=== PATIENT | female | born 1945 | race Caucasian/White ===

== ENCOUNTER 2017-10-08 10:01 | Inpatient (IN) ==
--- NOTE | 2017-10-07 16:18 | MH ---
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 HISTORY OF PRESENT ILLNESS: It has been there for quite a few years, but now starting to get larger and become painful. She also has a mole in the right cheek, when removed about 2 x 2 cm. She has had this mass over there for quite a few years. PAST SURGICAL HISTORY: She had a hysterectomy. She had a cholecystectomy. She had removal of mole on her right cheek. She had a fracture of her right arm. She denies any problems with anesthesia. PAST MEDICAL HISTORY: Her medical history includes high cholesterol and noninsulin dependent diabetes. REVIEW OF SYSTEMS: Presently normal. No infectious disease, no known problem. MEDICATIONS: 1. Metformin. 2. Lipitor. 3. Xanax. ALLERGIES: SULFA, ASPIRIN. She got sick with Tylenol #3. FAMILY HISTORY: Mother has heart disease. Father with TB and emphysema. 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 She is . Does not smoking. Drinking Habits: Does not drink. Her sleeping habits are poor. REVIEW OF SYSTEMS: GENERAL: She is 5 feet, 3 inches, 200 pounds. She has had no significant weight loss or gain in the past 6 months. HEENT: Head normal. Eyes: She has a cataract in her right eye. She wears glasses. Nose: No bleeding or obstruction. Mouth: She has got no dental difficulties. She wears a partial. THROAT: She has had some soreness, she thinks from her mass in her parotid. LYMPH NODES: Lymph nodes are locally without any enlargement. RESPIRATORY: She has a little shortness of breath when she is gets too active. CARDIOVASCULAR: She has some hypertension. She does get a little shortness of breath on exertion. No history of edema or phlebitis. No rheumatic fever. GI: She had her gallbladder taken out 20 years ago. She has some peptic ulcer issues at times. GENITOURINARY: No urinary difficulties. MUSCULOSKELETAL: No pain with range of motion. ENDOCRINE: She takes metformin for her diabetes, she is not insulin dependent. HEMATOLOGY: No immune pathology. NEURO: Normal motor and sensory. GENERAL: She is pleasant and positive. OB HISTORY: She is para 2, 2. PHYSICAL EXAMINATION: VITAL SIGNS: 138/87, pulse 78 and regular. O2 sat 97% on room air. 2. GENERAL: She is a well-nourished, well-developed female. HEAD AND NECK: Normocephalic. Carotids +2. She has a mass in her right parotid gland that is visible on examination, it is about a 3 x 5 cm. EYES: PERRLA, EOMI. Visual acuity intact. She wears glasses. Nose: Visible, stable. Septum midline. Mouth and oral cavity shows a partial in intraorally. NECK: Her neck is thin supple, without adenopathy. CARDIOVASCULAR: Regular rate and rhythm. S1, S2. No murmurs, rubs. RESPIRATORY: Bilaterally clear to auscultation. ABDOMEN: Soft, nontender. Bowel sounds heard in all 4 quadrants. : Deferred. EXTREMITIES: She has good pulses. Equal strength. NEUROLOGIC: She is alert and oriented x3. ASSESSMENT AND PLAN. Admission to [facility] for superficial parotidectomy on the right side and also removal of the mole on the right cheek. NATHALIA Acuña/FRANCI , 03:40 PM , 04:17 PM
[2017-10-08] MEDS ORDERED: Chlorhexidine Gluconate 2% 1 Pack (2 Cloths) TOPICAL SCH (10:45)
[2017-10-08] MEDS ORDERED: Metoprolol Tartrate 25 MG Tablet PO SCH (10:45)
[2017-10-08] MEDS ORDERED: Sodium Chlor 0.9% Inj 500 ML IV.SIG SCH (11:00)
[2017-10-08] MEDS ORDERED: Famotidine PF Inj 20 MG/2 ML Vial ONE (11:07)
--- NOTE | 2017-10-08 11:24 | ECG ---
Date Performed: 10/08/2017 Time Performed: 10:38:11 PTAGE: 72 years EKG: Sinus rhythm NORMAL ECG NO PREVIOUS TRACING DOCTOR: Migel Marie Interpretating Date/Time 10/08/2017 11:23:41
[2017-10-08 11:51] LABS: Baso % (Auto) 0.6 % (0.0-2.0); Eos # (Auto) 0.1 th/mm3 (0.0-0.4); Hematocrit 43.6 % (35.0-46.0); Hemoglobin 14.6 gm/dL (11.6-15.3); Lymph # (Auto) 3.1 th/mm3 (1.0-4.8); Lymph % (Auto) 44.3 % (9.0-44.0); Mean Corpuscular HGB Conc 33.5 % (32.0-36.0); Mean Corpuscular Hemoglobin 30.3 pg (27.0-34.0); Mean Corpuscular Volume 90.3 fL (80.0-100.0); Mean Platelet Volume 8.3 fL (7.0-11.0); Mono # (Auto) 0.5 th/mm3 (0.0-0.9); Mono % (Auto) 7.7 % (0.0-8.0); Neut # (Auto) 3.2 th/mm3 (1.8-7.7); Neut % (Auto) 45.4 % (16.0-70.0); Platelet Count 242 th/mm3 (150-450); Red Blood Count 4.82 mil/mm3 (4.00-5.30); Red Cell Distribution Width 13.8 % (11.6-17.2)
[2017-10-08] MEDS ORDERED: Lidocaine 1%/Epinephrine 1:100,000 Inj 50 ML Vial ONE (11:57)
[2017-10-08] MEDS ORDERED: Phenylephrine/NS 1000 MCG/10ML Syringe IV.PUSH ONE (12:00)
[2017-10-08] MEDS ORDERED: Lidocaine PF 1% Inj 5 ML Syringe INFILTRATN ONE (12:00)
[2017-10-08] MEDS ORDERED: Succinylcholine Inj 100 MG/5 ML Syringe IV.PUSH ONE (12:00)
[2017-10-08 12:13] LABS: Carbon Dioxide 26.9 meq/L (21.0-32.0); Potassium 3.8 meq/L (3.5-5.1)
[2017-10-08 12:14] LABS: Calcium 9.2 mg/dL (8.5-10.1)
[2017-10-08] MEDS ORDERED: Famotidine PF Inj 20 MG/2 ML Vial IV.PUSH ONE (12:30)
[2017-10-08] MEDS ORDERED: Microfibrillar Collagen Hemostat 1 GM Packet TOPICAL ONE (13:37)
[2017-10-08] MEDS ORDERED: fentaNYL Citrate Inj 100 MCG/2 ML Ampul ONE (14:26)
[2017-10-08] MEDS ORDERED: *Meperidine Inj 25 MG/ML Vial PERIprocedural Use ONLY ONE (14:37)
[2017-10-08] MEDS ORDERED: Morphine Inj 4 MG/ML Vial IV.PUSH PRN (14:41)
--- NOTE | 2017-10-08 14:56 | MP ---
cc: Jacky Dow DDS DATE OF OPERATION: 10/08/2017 DATE OF : 1945 DATE OF SURGERY: 10/08/2017 PREOPERATIVE DIAGNOSIS: Mass, right parotid gland. POSTOPERATIVE DIAGNOSIS: Mass, right parotid gland. PROCEDURE PERFORMED: Right superficial parotidectomy. SURGEON: Jacky Dow MD, Maxillofacial liner installer: Jacob Caro. FLUIDS: Crystalloids 1600 mL. ESTIMATED BLOOD LOSS: 50 mL. SPECIMENS: One permanent sent. DRAINS: She got a #7 FELISHA coming out of the right neck. JUSTIFICATION: Ms. Connolly is a pleasant 72-year-old female I have been following for a while. She has a mass in the right parotid which she has had for a few years. It is now starting to grow. CT scan showed how much larger it had gotten in size, now over 5 x 6 cm in size in the right parotid tail. It had started to cause her pain upon opening, so decision was made to go ahead and remove. 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 PROCEDURE: On 10/08/2017 [facility] she was identified by name and chart number. She was then brought to OR #7, where she was intubated orally by Anesthesia. She was prepped and draped in sterile fashion. Local anesthesia given with 1% Xylocaine with 1:1000 epinephrine, total of 10 mL in the right neck and preauricular region. A preauricular incision was made, facelift incision type, coming underneath the ear, back posteriorly and in question marlon incision down the neck. Subcutaneous dissection done to expose the flap out and expose the parotid gland and the mass. Dissection done deep along the preauricular and posterior auricular region, taking down underneath the parotid mass and the superficial tail of the parotid, removing the mass. Multiple vessels were entered, going to the lesion and had to be cut and tied off with a 2-0 silk suture. Some of the SCM muscle was bound down and scarred down to it, dissecting and releasing it from the parotid mass. Some cystic spaces were noted and some of the contents of the tumor dumped out suggestive of a Warthin's tumor. Continued to dissect down, tying off the bleeders, dissecting around the tumor mass, which had been there, scarred down, fairly difficult in a couple areas to remove. The mass was removed in 2 separate sections and sent off for permanent. The space was irrigated with copious saline. The closure was done. Avitene was placed in some of the space areas. Upon closure, the patient bucked and re-bleeding in the area. Had to open back to locate a small bleeder and then irrigated out again and the closure continued with a 4-0 Vicryl deep and 6-0 Prolene in the skin, some zacarias in the hairline. A dressing was wrapped around the neck to try to keep some pressure on this especially during extubation. According to Anesthesia, she was all over the place with her blood pressure, trying to keep it at a low number so she does have any bleeding issues into the neck. The patient was extubated and taken to Recovery with vital signs stable. Her plan is to go home tonight. If she has any issues in the PACU, then we will keep her for 23 hours if necessary. NATHALIA Acuña/FRANCI , 02:29 PM , 02:54 PM
--- NOTE | 2017-10-08 15:40 | CT ---
EXAM DATE: 10/08/2017 3:34 PM EDT AGE/SEX: 72 years / Female INDICATIONS: Post carotid surgery, slurred speech and seizure activity CLINICAL DATA: This is the patient's initial encounter. Patient reports that signs and symptoms have been present for 1 day and indicates a pain score of 4/10. MEDICAL/SURGICAL HISTORY: . unable to obtain . unable to obtain RADIATION DOSE: 56.35 CTDI (mGy) COMPARISON: POI, CT BRAIN W AND W/O CONTRAST, 08/16/2017. . TECHNIQUE: CT of the head without contrast. Using automated exposure control and adjustment of the mA and/or kV according to patient size, radiation dose was kept as low as reasonably achievable to ob tain optimal diagnostic quality images. DICOM format image data is available electronically for revi ew and comparison. FINDINGS: Cerebrum: The ventricular system is stable in appearance with diffuse prominence of the lateral vent ricles. There is mild atrophic change with sulcal prominence. No evidence of midline shift, mass lesi on, hemorrhage or acute infarction. No extraaxial fluid collections are seen. Posterior Fossa: The cerebellum and brainstem are intact. The 4th ventricle is midline. The cerebe llopontine angle is unremarkable. Extracranial: The visualized portion of the orbits is intact. Skull: The calvaria is intact. No evidence of skull fracture. CONCLUSION: 1. Stable appearance with no acute hemorrhage or mass effect. The lateral ventricles remain prominen t. Report was called by [Dr. Rapp to Dr. Euceda at 1536 hours. ] Electronically signed by: Butch Rapp MD 10/08/2017 3:39 PM EDT
[2017-10-08 15:47] LABS: Baso % (Auto) 0.5 % (0.0-2.0); Eos # (Auto) 0.1 th/mm3 (0.0-0.4); Eos % (Auto) 1.5 % (0.0-4.0); Hematocrit 40.2 % (35.0-46.0); Hemoglobin 13.4 gm/dL (11.6-15.3); Lymph # (Auto) 2.6 th/mm3 (1.0-4.8); Lymph % (Auto) 36.3 % (9.0-44.0); Mean Corpuscular HGB Conc 33.5 % (32.0-36.0); Mean Corpuscular Hemoglobin 30.9 pg (27.0-34.0); Mean Corpuscular Volume 92.4 fL (80.0-100.0); Mean Platelet Volume 8.3 fL (7.0-11.0); Mono # (Auto) 0.5 th/mm3 (0.0-0.9); Mono % (Auto) 6.5 % (0.0-8.0); Neut % (Auto) 55.2 % (16.0-70.0); Platelet Count 211 th/mm3 (150-450); Red Blood Count 4.35 mil/mm3 (4.00-5.30); Red Cell Distribution Width 13.9 % (11.6-17.2); White Blood Count 7.3 th/mm3 (4.0-11.0)
[2017-10-08 16:01] LABS: Creatine Kinase 65 U/L (26-192)
[2017-10-08 16:11] LABS: Activated Partial Thrombo Time 21.4 sec (24.3-30.1); INR 1.1 Ratio; Prothrombin Time 10.8 sec (9.8-11.6)
--- NOTE | 2017-10-08 16:35 | P.CONNEU ---
History of Present Illness Service: Neurology Primary Care Provider: Miriam Suggs MD Family Provider: Miriam Suggs MD History of Present Illness: 72-year-old female admitted for right parotid tumor excision. Postop noted to be confused slurred speech right facial weakness same side as her surgery. She apparently was given opiate medication. Transfer to the intensive care unit. She has CT brain scan which did not show any acute lesion. She is feeling better her speech is improved she is more awake and alert. Denies any focal weakness or history of TIA or stroke. Review of Systems All other systems reviewed negative except as stated in HPI [facility] - History History Provided By: Patient - Medical History Medical History: Medical History (Last Updated 10/08/17 @ 10:59 by Babs Cortes RN) Asthma Anxiety Arthritis Degenerated intervertebral disc Diabetes GERD (gastroesophageal reflux disease) High cholesterol History of fracture of wrist Hx of hysterectomy Squamous cell carcinoma - Surgical History Surgical History: Surgical History (Last Reviewed 10/08/17 @ 10:58 by Babs Cortes RN) Hx of cholecystectomy Hx of removal of cyst - Tobacco History Second Hand Smoke Exposure: No Tobacco Use In Past 30 Days: No Smoking Status: Never smoker - Alcohol History How Often Do You Have a Drink Containing Alcohol: Never - Substance Use History Substance History: No History of Abuse Medications and Allergies Active Medications: Active Medications Chlorhexidine Gluconate (Chlorhexidine 2% Cloth) 3 pack TOPICAL STUDENT COUNSELLOR [facility] Stop: 10/11/17 10:36 Last Admin: 10/08/17 10:20 Dose: 3 pack Lactated Ringer's (Lr 1000 Ml Inj) 1,000 mls @ 30 mls/hr IV.SIG .Q24H [facility] Stop: 10/11/17 10:36 Last Admin: 10/08/17 11:32 Dose: 30 mls/hr Sodium Chloride (Ns Inj) 500 mls @ 30 mls/hr IV.SIG .Q10H [facility] Stop: 10/11/17 10:36 Metoprolol Tartrate (Lopressor) 25 mg PO STUDENT COUNSELLOR [facility] Stop: 10/11/17 10:36 Last Admin: 10/08/17 11:35 Dose: Not Given Miscellaneous Information (Misc Nursing Information) 1 each OTHER UNSCH PRN PRN Reason: SEE LABEL COMMENTS Stop: 10/09/17 14:37 Morphine Sulfate (Morphine Inj) 2 mg IV.PUSH Q3H PRN PRN Reason: PAIN SCALE 6-10 Oxycodone/Acetaminophen (Percocet 5/325 Mg) 1 tab PO Q4H PRN PRN Reason: PAIN SCALE 1-5 Povidone Iodine (Betadine 5% Antisepsis Kit) 1 applicatio EACH N[employer] STUDENT COUNSELLOR [place] Stop: 10/11/17 10:36 Last Admin: 10/08/17 11:10 Dose: 1 applicatio Allergies Allergy/AdvReac Type Severity Reaction Status Date / Time Sulfa (Sulfonamide Allergy Swelling Verified 10/08/17 10:55 Antibiotics) of Lip/Tongue/Throat acetaminophen AdvReac Gastrointestinal Verified 10/08/17 10:55 Upset aspirin AdvReac Gastrointestinal Verified 10/08/17 10:55 Upset Home Medications Medication Instructions Recorded Confirmed Type alprazolam [Xanax] 0.25 mg PO BID PRN 10/04/17 10/08/17 History atorvastatin 40 mg PO EVERY OTHER DAY 10/04/17 10/08/17 History hydrocodone-acetaminophen [Empire] 1 tab PO Q4-6H PRN 10/04/17 10/08/17 History metformin 500 mg PO DAILY 10/04/17 10/08/17 History omeprazole 20 mg PO DAILY 10/04/17 10/08/17 History fluticasone-vilanterol [Breo 1 inh INHALATION DAILY 10/08/17 10/08/17 History Ellipta] Exam Vital signs: Vital Signs 10/08/17 11:11 Temperature 98.8 F Pulse Rate 80 Respiratory Rate 20 Blood Pressure 142/69 H Pulse Oximetry 94 L Intake & Output 10/07/17 10/08/17 10/08/17 18:59 06:59 18:59 Weight 93.6 kg Other: Weight On Admission 93.6 kg Narrative: GENERAL: Well nourished patient, in no apparent distress. SKIN: Warm and dry. HEAD: Atraumatic. Normocephalic. EYES: Pupils equal and round. No scleral icterus. No injection or drainage. NECK: Trachea midline. Neck is supple. CARDIOVASCULAR: Normal rate and regular rhythm without murmurs, RESPIRATORY: Symmetric, unlabored respirations. GASTROINTESTINAL: Abdomen soft, non-tender, non-distended. NEUROLOGICAL: Awake alert oriented 3 fluent articulate no aphasia. Extraocular movements intact no, mild right lower facial weakness drain coming out the right lower mandible region where she had her surgery, speech clear oriented 3 pupils sluggishly reactive extraocular movements intact tongue midline, no pronator drift - Constitutional no acute distress - Routine HEENT Exam Head: Present: normocephalic, atraumatic Eye: Present: EOMI - Routine Neck Exam Present: supple Results - Labs CBC & Chem 7: 10/08/17 15:17 10/08/17 11:20 Labs: Laboratory Results - last 24 hr 10/08/17 10/08/17 10/08/17 11:20 11:20 14:44 WBC 7.0 RBC 4.82 Hgb 14.6 POC Hgb (Calc) Hct 43.6 POC Hct MCV 90.3 MCH 30.3 MCHC 33.5 RDW 13.8 Plt Count 242 MPV 8.3 Neut % (Auto) 45.4 Lymph % (Auto) 44.3 H [place] % (Auto) 7.7 Eos % (Auto) 2.0 Baso % (Auto) 0.6 Neut # (Auto) 3.2 Lymph # (Auto) 3.1 [place] # (Auto) 0.5 Eos # (Auto) 0.1 Baso # (Auto) 0.0 WBC Differential . Differential Comment Auto diff final PT INR APTT Fibrinogen POC Sodium Sodium 142 POC Potassium Potassium 3.8 POC Chloride Chloride 106 Carbon Dioxide 26.9 Anion Gap 9 POC BUN BUN 18 Creatinine 1.03 H POC Creatinine Estimated GFR 53 L POC Glucose 100 Random Glucose 96 Calcium 9.2 Total Creatine Kinase Troponin I Blood Type Blood Type Recheck Antibody Screen 10/08/17 10/08/17 10/08/17 15:17 15:17 15:17 WBC 7.3 RBC 4.35 Hgb 13.4 POC Hgb (Calc) Hct 40.2 POC Hct MCV 92.4 MCH 30.9 MCHC 33.5 RDW 13.9 Plt Count 211 MPV 8.3 Neut % (Auto) 55.2 Lymph % (Auto) 36.3 [place] % (Auto) 6.5 Eos % (Auto) 1.5 Baso % (Auto) 0.5 Neut # (Auto) 4.0 Lymph # (Auto) 2.6 [place] # (Auto) 0.5 Eos # (Auto) 0.1 Baso # (Auto) 0.0 WBC Differential . Differential Comment Auto diff final PT 10.8 INR 1.1 APTT 21.4 L Fibrinogen 189 L POC Sodium Sodium POC Potassium Potassium POC Chloride Chloride Carbon Dioxide Anion Gap POC BUN BUN Creatinine POC Creatinine Estimated GFR POC Glucose Random Glucose Calcium Total Creatine Kinase 65 Troponin I Less than 0.02 L Blood Type Blood Type Recheck Antibody Screen 10/08/17 10/08/17 15:17 15:17 WBC RBC Hgb POC Hgb (Calc) 13.3 Hct POC Hct 39.0 MCV MCH MCHC RDW Plt Count MPV Neut % (Auto) Lymph % (Auto) [place] % (Auto) Eos % (Auto) Baso % (Auto) Neut # (Auto) Lymph # (Auto) [place] # (Auto) Eos # (Auto) Baso # (Auto) WBC Differential Differential Comment PT INR APTT Fibrinogen POC Sodium 140 Sodium POC Potassium 3.8 Potassium POC Chloride 101 L Chloride Carbon Dioxide Anion Gap POC BUN 18 BUN Creatinine POC Creatinine 1.0 Estimated GFR POC Glucose 137 H Random Glucose Calcium Total Creatine Kinase Troponin I Blood Type A Positive Blood Type Recheck Required Antibody Screen Negative - Imaging Impressions Head CT 10/08/17 15:16 CONCLUSION: 1. Stable appearance with no acute hemorrhage or mass effect. The lateral ventricles remain prominent. Report was called by [Dr. Rapp to Dr. Euceda at 1536 hours. 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 Code(s): G97.82 - Other postprocedural complications and disorders of nervous system; G51.9 - Disorder of facial nerve, unspecified Status: Acute Current Visit: Yes (3) Hypertension Code(s): I10 - Essential (primary) hypertension Status: Acute Current Visit : Yes - Review/Management Plan: Probable medication reaction causing her confusion lethargy; right facial weakness likely related to facial neuropathy associated with her recent surgery which hopefully should improve with time no other focal weakness Unlikely to be a stroke based on current clinical scenario thus not a TPA candidate in addition to minimal symptoms which have improved Recommendations Follow exam Blood pressure control
[2017-10-08] MEDS ORDERED: ALPRAZolam 0.25 MG Tablet PO PRN (17:22)
[2017-10-08] MEDS ORDERED: Dextrose 50% in Water 50 ML Vial IV.PUSH PRN (17:25)
--- NOTE | 2017-10-08 17:54 | P.CONIM ---
History of Present Illness Service: [facility] Consult date: 10/08/17 Requesting Physician: Jacky Almanzar Reason for Consult: MEDICAL MANAGEMENT Primary Care Provider: Miriam Suggs MD Family Provider: Miriam Suggs MD History of Present Illness: Patient is a 72-year-old female. Who underwent right parotidectomy by Dr. ALMANZAR TODAY. After surgery was noted to have some right-sided facial droop. There was some concern about a TIA versus stroke. Was seen by neurology who ruled this out. It is suspect that may be a facial nerve was involved during the surgery. We have been asked to consult regarding medical management. Has a history of a hysterectomy, cholecystectomy, removal of her mole from her right cheek, repair fracture of her right arm, and tonsillectomy tonsillectomy. Also has a history of high cholesterol and diabetes mellitus and some anxiety Review of Systems All other systems reviewed negative except as stated in HPI [facility] - History History Provided By: Patient - Medical History Medical History: Medical History (Last Updated 10/08/17 @ 10:59 by Babs Cortes RN) Asthma Anxiety Arthritis Degenerated intervertebral disc Diabetes GERD (gastroesophageal reflux disease) High cholesterol History of fracture of wrist Hx of hysterectomy Squamous cell carcinoma - Surgical History Surgical History: Surgical History (Last Reviewed 10/08/17 @ 10:58 by Babs Cortes RN) Hx of cholecystectomy Hx of removal of cyst - Family History Family History: Family History (Last Updated 10/08/17 @ 17:51 by Jose E Mills DO) Mother Heart disease Grandparent Tuberculosis Father Tuberculosis Emphysema of lung - Tobacco History Second Hand Smoke Exposure: No Tobacco Use In Past 30 Days: No Smoking Status: Never smoker - Alcohol History How Often Do You Have a Drink Containing Alcohol: Never - Substance Use History Substance History: No History of Abuse Medications and Allergies Active Medications: Active Medications Hydrocodone Bitart/Acetaminophen ([place] 7.5/325) 1 tab PO Q4-6H PRN PRN Reason: Pain Al Hydrox/Mg Hydrox/Simethicone (Mag-Al Plus Susp Liq) 30 ml PO Q6H PRN PRN Reason: HEARTBURN Alprazolam (Xanax) 0.25 mg PO BID PRN PRN Reason: Anxiety Atorvastatin Calcium (Lipitor) 40 mg PO EVERY OTHER DAY [facility] Chlorhexidine Gluconate (Chlorhexidine 2% Cloth) 3 pack TOPICAL [employer] [facility] Stop: 10/11/17 10:36 Last Admin: 10/08/17 10:20 Dose: 3 pack Clonidine HCl (Catapres) 0.1 mg PO Q6H PRN PRN Reason: HYPERTENSION Dextrose (D50w Vial) 50 ml IV.PUSH UNSCH PRN PRN Reason: PER HYPOGLYCEMIA PROTOCOL Famotidine (Pepcid) 20 mg PO BID [facility] Fluticasone/Vilanterol (Breo Ellipta 100/25 Mcg Inh) puff INH DAILY [facility] Glucagon (Glucagon Inj) 1 mg OTHER PRN PRN PRN Reason: for Hypoglycemia Protocol Lactated Ringer's (Lr 1000 Ml Inj) 1,000 mls @ 30 mls/hr IV.SIG .Q24H [facility] Stop: 10/11/17 10:36 Last Admin: 10/08/17 11:32 Dose: 30 mls/hr Sodium Chloride (Ns Inj) 500 mls @ 30 mls/hr IV.SIG .Q10H [facility] Stop: 10/11/17 10:36 Insulin Aspart (Novolog Insulin Correctional Sugar Inj) 0 unit SQ ACHS AND 3AM [facility]; Protocol Metformin HCl (Glucophage) 500 mg PO DAILY [facility] Metoprolol Tartrate (Lopressor) 25 mg PO [employer] [facility] Stop: 10/11/17 10:36 Last Admin: 10/08/17 11:35 Dose: Not Given Miscellaneous Information ([facility] Nursing Information) 1 each OTHER UNSCH PRN PRN Reason: SEE LABEL COMMENTS Stop: 10/09/17 14:37 Morphine Sulfate (Morphine Inj) 2 mg IV.PUSH Q3H PRN PRN Reason: PAIN SCALE 6-10 Last Admin: 10/08/17 15:45 Dose: 2 mg Non-Formulary Medication (Omeprazole [Omeprazole]) 20 mg PO DAILY [facility] Oxycodone/Acetaminophen (Percocet 5/325 Mg) 1 tab PO Q4H PRN PRN Reason: PAIN SCALE 1-5 Povidone Iodine (Betadine 5% Antisepsis Kit) 1 applicatio EACH NARE [employer] [facility] Stop: 10/11/17 10:36 Last Admin: 10/08/17 11:10 Dose: 1 applicatio Allergies Allergy/AdvReac Type Severity Reaction Status Date / Time Sulfa (Sulfonamide Allergy Swelling Verified 10/08/17 10:55 Antibiotics) of Lip/Tongue/Throat acetaminophen AdvReac Gastrointestinal Verified 10/08/17 10:55 Upset aspirin AdvReac Gastrointestinal Verified 10/08/17 10:55 Upset Home Medications Medication Instructions Recorded Confirmed Type alprazolam [Xanax] 0.25 mg PO BID PRN 10/04/17 10/08/17 History atorvastatin 40 mg PO EVERY OTHER DAY 10/04/17 10/08/17 History hydrocodone-acetaminophen [[place]] 1 tab PO Q4-6H PRN 10/04/17 10/08/17 History metformin 500 mg PO DAILY 10/04/17 10/08/17 History omeprazole 20 mg PO DAILY 10/04/17 10/08/17 History fluticasone-vilanterol [Breo 1 inh INHALATION DAILY 10/08/17 10/08/17 History Ellipta] Exam Vital signs: Vital Signs 10/08/17 11:11 10/08/17 16:00 Temperature 98.8 F 97.8 F Pulse Rate 80 86 Respiratory Rate 20 16 Blood Pressure 142/69 H 137/63 Pulse Oximetry 94 L 99 Intake & Output 10/07/17 10/08/17 10/08/17 18:59 06:59 18:59 Weight 93.6 kg Other: Weight On Admission 93.6 kg Narrative: GENERAL: Awake alert and oriented talkative and cooperative appears stated age SKIN: Warm and dry. HEAD: Atraumatic. Normocephalic. EYES: Pupils equal and round. No scleral icterus. No injection or drainage. Right neck face is dressed. Has some right-sided facial droop suspected from facial nerve injury from surgery ENT: No nasal bleeding or discharge. Mucous membranes pink and moist. NECK: Trachea midline. No JVD. Supple CARDIOVASCULAR: Regular rate and rhythm. S1-S2 no S3 or S4 RESPIRATORY: No accessory muscle use. Clear to auscultation. Breath sounds equal bilaterally. GASTROINTESTINAL: Abdomen soft, non-tender, nondistended. Hepatic and splenic margins not palpable. MUSCULOSKELETAL: Extremities without clubbing, cyanosis, or edema. No obvious deformities. NEUROLOGICAL: Awake and alert. No obvious cranial nerve deficits. Motor grossly within normal limits. Five out of 5 muscle strength in the arms and legs. Normal speech. Right facial droop probably secondary to surgery PSYCHIATRIC: Appropriate mood and affect; insight and judgment normal. Results - Labs CBC & Chem 7: 10/08/17 15:17 10/08/17 11:20 Labs: Laboratory Results - last 24 hr 10/08/17 10/08/17 10/08/17 11:20 11:20 14:44 WBC 7.0 RBC 4.82 Hgb 14.6 POC Hgb (Calc) Hct 43.6 POC Hct MCV 90.3 MCH 30.3 MCHC 33.5 RDW 13.8 Plt Count 242 MPV 8.3 Neut % (Auto) 45.4 Lymph % (Auto) 44.3 H Store[place] % (Auto) 7.7 Eos % (Auto) 2.0 Baso % (Auto) 0.6 Neut # (Auto) 3.2 Lymph # (Auto) 3.1 [place] # (Auto) 0.5 Eos # (Auto) 0.1 Baso # (Auto) 0.0 WBC Differential . Differential Comment Auto diff final PT INR APTT Fibrinogen POC Sodium Sodium 142 POC Potassium Potassium 3.8 POC Chloride Chloride 106 Carbon Dioxide 26.9 Anion Gap 9 POC BUN BUN 18 Creatinine 1.03 H POC Creatinine Estimated GFR 53 L POC Glucose 100 Random Glucose 96 Calcium 9.2 Total Creatine Kinase Troponin I Blood Type Blood Type Recheck Antibody Screen 10/08/17 10/08/17 10/08/17 15:17 15:17 15:17 WBC 7.3 RBC 4.35 Hgb 13.4 POC Hgb (Calc) Hct 40.2 POC Hct MCV 92.4 MCH 30.9 MCHC 33.5 RDW 13.9 Plt Count 211 MPV 8.3 Neut % (Auto) 55.2 Lymph % (Auto) 36.3 [place] % (Auto) 6.5 Eos % (Auto) 1.5 Baso % (Auto) 0.5 Neut # (Auto) 4.0 Lymph # (Auto) 2.6 [place] # (Auto) 0.5 Eos # (Auto) 0.1 Baso # (Auto) 0.0 WBC Differential . Differential Comment Auto diff final PT 10.8 INR 1.1 APTT 21.4 L Fibrinogen 189 L POC Sodium Sodium POC Potassium Potassium POC Chloride Chloride Carbon Dioxide Anion Gap POC BUN BUN Creatinine POC Creatinine Estimated GFR POC Glucose Random Glucose Calcium Total Creatine Kinase 65 Troponin I Less than 0.02 L Blood Type Blood Type Recheck Antibody Screen 10/08/17 10/08/17 15:17 15:17 WBC RBC Hgb POC Hgb (Calc) 13.3 Hct POC Hct 39.0 MCV MCH MCHC RDW Plt Count MPV Neut % (Auto) Lymph % (Auto) [place]y % (Auto) Eos % (Auto) Baso % (Auto) Neut # (Auto) Lymph # (Auto) [place] # (Auto) Eos # (Auto) Baso # (Auto) WBC Differential Differential Comment PT INR APTT Fibrinogen POC Sodium 140 Sodium POC Potassium 3.8 Potassium POC Chloride 101 L Chloride Carbon Dioxide Anion Gap POC BUN 18 BUN Creatinine POC Creatinine 1.0 Estimated GFR POC Glucose 137 H Random Glucose Calcium Total Creatine Kinase Troponin I Blood Type A Positive Blood Type Recheck Required Antibody Screen Negative - Imaging Impressions Head CT 10/08/17 15:16 CONCLUSION: 1. Stable appearance with no acute hemorrhage or mass effect. The lateral ventricles remain prominent. Report was called by [Dr. Rapp to Dr. Euceda at 1536 hours. 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 labs Will be followed throughout the admission and hopefully discharged within the next 24-48 hours depending on clearance by surgery Code Status: Full code Discussed Condition With: RN and patient and family Discharge Planning: Pending surgical clearance
[2017-10-08] MEDS: Insulin NovoLOG Aspart Correctional Sugar Inj SQ SCH ×2 (18:02→23:21)
--- NOTE | 2017-10-08 18:04 | ECG ---
Date Performed: 10/08/2017 Time Performed: 15:17:57 PTAGE: 72 years EKG: Sinus rhythm NORMAL ECG PREVIOUS TRACING : 10/08/2017 10.38 Since the previous tracing, no significant change noted DOCTOR: April Calle Interpretating Date/Time 10/08/2017 18:02:40
[2017-10-08] MEDS: Aluminum/Magnesium/Simethacone Susp 30 ML UDC PO PRN (18:05)
[2017-10-08] MEDS: Pantoprazole Sodium 20 MG DR Tablet PO SCH (18:43)
[2017-10-08] MEDS: Famotidine 20 MG Tablet PO SCH (23:20)
[2017-10-09 01:45] VITALS: PULSE 66
[2017-10-09] MEDS: Insulin NovoLOG Aspart Correctional Sugar Inj SQ SCH ×2 (05:41→08:41)
[2017-10-09] MEDS: Aluminum/Magnesium/Simethacone Susp 30 ML UDC PO PRN (05:56)
--- NOTE | 2017-10-09 06:43 | P.PNGS ---
Subjective Interval history: 72 y/o F POD 0 s/p right superficial parotidectomy. No further shaking, but continued decreased mobility of the right side of face c/w surgical procedure. Head CT negative for intracranial hemorrhage or infarct. Patient reports some mild discomfort overnight, managed with pain medications. Reports some continued tearing on the right side and decreased ability to perioral muscles and neck. Denies any nausea, fevers, chills. Physical Exam Vital signs: Vital Signs 10/08/17 11:11 10/08/17 14:12 10/08/17 14:15 Temperature 98.8 F 98.1 F Pulse Rate 80 101 H 99 H Respiratory Rate 20 18 19 Blood Pressure 142/69 H 132/69 126/60 Pulse Oximetry 94 L 98 97 10/08/17 14:30 10/08/17 14:45 10/08/17 15:00 Temperature Pulse Rate 94 H 91 H 88 Respiratory Rate 18 14 15 Blood Pressure 113/65 109/56 L 121/58 L Pulse Oximetry 98 96 96 10/08/17 15:15 10/08/17 15:36 10/08/17 15:45 Temperature Pulse Rate 92 H 91 H 84 Respiratory Rate 23 18 15 Blood Pressure 128/60 105/54 L 140/59 L Pulse Oximetry 95 95 98 10/08/17 16:00 10/08/17 18:40 10/08/17 19:00 Temperature 97.8 F Pulse Rate 86 80 Respiratory Rate 16 16 16 Blood Pressure 137/63 122/58 L Pulse Oximetry 99 94 L 10/08/17 19:47 10/08/17 20:00 10/08/17 21:00 Temperature 98.3 F Pulse Rate 80 75 Respiratory Rate 18 24 Blood Pressure 117/57 L 109/94 H Pulse Oximetry 95 94 L 10/08/17 22:00 10/08/17 23:00 10/09/17 00:00 Temperature 97.8 F Pulse Rate 71 66 77 Respiratory Rate 17 16 23 Blood Pressure 133/60 126/60 109/59 L Pulse Oximetry 10/09/17 01:00 Temperature Pulse Rate 66 Respiratory Rate Blood Pressure 105/52 L Pulse Oximetry Intake & Output 10/08/17 10/08/17 10/09/17 06:59 18:59 06:59 Intake Total 1915 / 191 Output Total 815 / 815 Balance 1100 / 1100 Weight 93.6 kg Intake: Oral 240 / 240 Anesthesia Amount 1600 / 1600 Other 75 / 75 Output: Urine 0 / 0 Estimated Blood Loss 50 / 50 Urine Amount (Catheter) 725 / 725 Indwelling Urethral Catheter 725 / 725 Wound Drainage 40 / 40 Right Cheek 40 / 40 Other: # Bowel Movements 0 Weight On Admission 93.6 kg - Constitutional no acute distress - Routine HEENT Exam Head: Present: normocephalic Comments: Mild facial edema on right side. FELISHA drain in place with minimal sanguinous drainage. Prateek in place as well as prolene sutures in periauricular region, well approximated. Scant hemorrhagic crusting around incision sites. Mild tenderness to palpation. HB III of facial nerve on right. Intraorally, mucous membranes are well hydrated. - Routine Neck Exam Comments: Decreased mobility with lateral movements. - Routine Respiratory Exam Comments: Normal WOB on room air - Routine Cardiovascular Exam Comments: Regular rate - Routine Abdominal Exam Present: soft - Urinary Catheter Management Indwelling Urethral Catheter Cath placed during this visit: yes Reason for continuing: Acute urinary retention Insertion date: 10/08/17 Insertion time: 16:00 Assessment and Plan - Assessment (1) Parotid tumor Code(s): D49.0 - Neoplasm of unspecified behavior of digestive system Status: Acute - Plan Patient doing well post-operatively. OK for discharge from OMS standpoint. Recommend removal of [place] catheter prior to discharge. Patient to follow-up in office tomorrow for drain removal. Patient may be provided with paper tape for eye to prevent drying at night. Also recommended to patient that she may use artificial tears as needed.
[2017-10-09 06:57] VITALS: BP 121/59; RESP 14; TEMP 98.4
[2017-10-09 07:04] LABS: Hematocrit 43.7 % (35.0-46.0); Hemoglobin 14.4 gm/dL (11.6-15.3); Mean Corpuscular HGB Conc 32.9 % (32.0-36.0); Mean Corpuscular Hemoglobin 29.9 pg (27.0-34.0); Mean Platelet Volume 8.7 fL (7.0-11.0); Platelet Count 237 th/mm3 (150-450); Red Cell Distribution Width 14.1 % (11.6-17.2); White Blood Count 13.8 th/mm3 (4.0-11.0)
[2017-10-09 07:25] LABS: Albumin 3.7 g/dL (3.4-5.0); Anion Gap 10 meq/L (5-15); Aspartate Aminotransferase 56 U/L (15-37); Blood Urea Nitrogen 15 mg/dL (7-18); Calcium 8.9 mg/dL (8.5-10.1); Carbon Dioxide 26.8 meq/L (21.0-32.0); Chloride 103 meq/L (98-107); Glomerular Filtration Rate 64 mL/min (>89); Glucose,Random 114 mg/dL (74-106); Magnesium 2.6 mg/dL (1.5-2.5); Sodium 140 meq/L (136-145)
[2017-10-09 07:26] LABS: Alanine Aminotransferase 76 U/L (10-53); Phosphorus 3.5 mg/dL (2.5-4.9)
[2017-10-09 07:34] LABS: Alkaline Phosphatase 66 U/L (45-117); Free T4 (Free Thyroxine) 0.95 ng/dL (0.76-1.46); Total Protein 7.5 g/dL (6.4-8.2)
--- NOTE | 2017-10-09 08:14 | P.PNNEU ---
Subjective Subjective Comments: No acute events reported No headache No chest pain No dyspnea Active Medications: Active Medications Hydrocodone Bitart/Acetaminophen ([place] 7.5/325) 1 tab PO Q4H PRN PRN Reason: PAIN SCALE 1 TO 10 Last Admin: 10/09/17 04:29 Dose: 1 tab Al Hydrox/Mg Hydrox/Simethicone (Mag-Al Plus Susp Liq) 30 ml PO Q6H PRN PRN Reason: HEARTBURN Last Admin: 10/09/17 05:56 Dose: 30 ml Alprazolam (Xanax) 0.25 mg PO BID PRN PRN Reason: Anxiety Last Admin: 10/08/17 22:00 Dose: 0.25 mg Atorvastatin Calcium (Lipitor) 40 mg PO EVERY OTHER DAY [facility] Chlorhexidine Gluconate (Chlorhexidine 2% Cloth) 3 pack 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 [facility] Stop: 10/11/17 10:36 Last Admin: 10/08/17 10:20 Dose: 3 pack Clonidine HCl (Catapres) 0.1 mg PO Q6H PRN PRN Reason: HYPERTENSION Dextrose (D50w Vial) 50 ml IV.PUSH UNSCH PRN PRN Reason: PER HYPOGLYCEMIA PROTOCOL Famotidine (Pepcid) 20 mg PO BID [facility] Last Admin: 10/08/17 23:20 Dose: Not Given Fluticasone/Vilanterol (Breo Ellipta 100/25 Mcg Inh) 1 puff INH DAILY [facility] Last Admin: 10/09/17 03:44 Dose: Not Given Glucagon (Glucagon Inj) 1 mg OTHER PRN PRN PRN Reason: for Hypoglycemia Protocol Lactated Ringer's (Lr 1000 Ml Inj) 1,000 mls @ 30 mls/hr IV.SIG .Q24H [facility] Stop: 10/11/17 10:36 Last Admin: 10/08/17 11:32 Dose: 30 mls/hr Sodium Chloride (Ns Inj) 500 mls @ 30 mls/hr IV.SIG .Q10H [facility] Stop: 10/11/17 10:36 Insulin Aspart (Novolog Insulin Correctional Sugar Inj) 0 unit SQ ACHS AND 3AM [facility]; Protocol Last Admin: 10/09/17 05:41 Dose: Not Given Metformin HCl (Glucophage) 500 mg PO DAILY [facility] Metoprolol Tartrate (Lopressor) 25 mg PO 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 [facility] Stop: 10/11/17 10:36 Last Admin: 10/08/17 11:35 Dose: Not Given Miscellaneous Information ([facility] Nursing Information) 1 each OTHER UNSCH PRN PRN Reason: SEE LABEL COMMENTS Stop: 10/09/17 14:37 Morphine Sulfate (Morphine Inj) 2 mg IV.PUSH Q3H PRN PRN Reason: PAIN SCALE 6-10 Last Admin: 10/08/17 15:45 Dose: 2 mg Oxycodone/Acetaminophen (Percocet 5/325 Mg) 1 tab PO Q4H PRN PRN Reason: PAIN SCALE 1-5 Pantoprazole Sodium (Protonix) 20 mg PO DAILY [facility] Last Admin: 10/08/17 18:43 Dose: 20 mg Povidone Iodine (Betadine 5% Antisepsis Kit) 1 applicatio EACH NARE 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 [facility] Stop: 10/11/17 10:36 Last Admin: 10/08/17 11:10 Dose: 1 applicatio Allergies/Adverse Reactions: Allergies Allergy/AdvReac Type Severity Reaction Status Date / Time Sulfa (Sulfonamide Allergy Swelling Verified 10/08/17 10:55 Antibiotics) of Lip/Tongue/Throat acetaminophen AdvReac Gastrointestinal Verified 10/08/17 10:55 Upset aspirin AdvReac Gastrointestinal Verified 10/08/17 10:55 Upset Review of Systems All other systems reviewed negative except as stated in HPI Physical Exam Vital signs: Vital Signs 10/08/17 11:11 10/08/17 14:12 10/08/17 14:15 Temperature 98.8 F 98.1 F Pulse Rate 80 101 H 99 H Respiratory Rate 20 18 19 Blood Pressure 142/69 H 132/69 126/60 Pulse Oximetry 94 L 98 97 10/08/17 14:30 10/08/17 14:45 10/08/17 15:00 Temperature Pulse Rate 94 H 91 H 88 Respiratory Rate 18 14 15 Blood Pressure 113/65 109/56 L 121/58 L Pulse Oximetry 98 96 96 10/08/17 15:15 10/08/17 15:36 10/08/17 15:45 Temperature Pulse Rate 92 H 91 H 84 Respiratory Rate 23 18 15 Blood Pressure 128/60 105/54 L 140/59 L Pulse Oximetry 95 95 98 10/08/17 16:00 10/08/17 18:40 10/08/17 19:00 Temperature 97.8 F Pulse Rate 86 80 Respiratory Rate 16 16 16 Blood Pressure 137/63 122/58 L Pulse Oximetry 99 94 L 10/08/17 19:47 10/08/17 20:00 10/08/17 21:00 Temperature 98.3 F Pulse Rate 80 75 Respiratory Rate 18 24 Blood Pressure 117/57 L 109/94 H Pulse Oximetry 95 94 L 10/08/17 22:00 10/08/17 23:00 10/09/17 00:00 Temperature 97.8 F Pulse Rate 71 66 77 Respiratory Rate 17 16 23 Blood Pressure 133/60 126/60 109/59 L Pulse Oximetry 10/09/17 01:00 10/09/17 02:00 10/09/17 03:00 Temperature Pulse Rate 66 64 64 Respiratory Rate 15 13 Blood Pressure 105/52 L 94/51 L 112/54 L Pulse Oximetry 96 95 10/09/17 04:00 10/09/17 05:00 10/09/17 06:00 Temperature 98.4 F Pulse Rate 66 64 66 Respiratory Rate 14 16 14 Blood Pressure 116/55 L 126/68 121/59 L Pulse Oximetry 96 96 95 Intake & Output 10/08/17 10/09/17 10/09/17 18:59 06:59 18:59 Intake Total 1915 / 1915 Output Total 815 / 815 1080 / 1080 Balance 1100 / 1100 -1080 / -1080 Weight 93.6 kg 93.61 kg Intake: Oral 240 / 240 Anesthesia Amount 1600 / 1600 Other 75 / 75 Output: Urine 0 / 0 Estimated Blood Loss 50 / 50 Urine Amount (Catheter) 725 / 725 1050 / 1050 Indwelling Urethral Catheter 725 / 725 1050 / 1050 Wound Drainage 40 / 40 30 / 30 Right Cheek 40 / 40 30 / 30 Other: # Bowel Movements 0 Weight On Admission 93.6 kg Narrative: GENERAL: Well nourished patient, in no apparent distress. SKIN: Warm and dry. HEAD: Atraumatic. Normocephalic. EYES: Pupils equal and round. NECK: Trachea midline. Neck is supple. CARDIOVASCULAR: Normal rate and regular rhythm without murmurs, RESPIRATORY: Symmetric, unlabored respirations. GASTROINTESTINAL: Abdomen soft, non-tender, non-distended. NEUROLOGICAL: Awake alert oriented 3 fluent articulate no aphasia. Extraocular movements intact no, mild right lower facial weakness drain coming out the right lower mandible region where she had her surgery, speech clear oriented 3 pupils sluggishly reactive extraocular movements intact tongue midline, no pronator drift - Constitutional no acute distress - Routine HEENT Exam Head: Present: normocephalic Eye: Present: EOMI - Urinary Catheter Management Indwelling Urethral Catheter Cath placed during this visit: yes Reason for continuing: Acute urinary retention Insertion date: 10/08/17 Insertion time: 16:00 Objective Laboratory Results - last 24 hr 10/08/17 10/08/17 10/08/17 11:20 11:20 14:44 WBC 7.0 RBC 4.82 Hgb 14.6 POC Hgb (Calc) Hct 43.6 POC Hct MCV 90.3 MCH 30.3 MCHC 33.5 RDW 13.8 Plt Count 242 MPV 8.3 Prelim Diff (Auto) Neut % (Auto) 45.4 Lymph % (Auto) 44.3 H [place] % (Auto) 7.7 Eos % (Auto) 2.0 Baso % (Auto) 0.6 Neut # (Auto) 3.2 Lymph # (Auto) 3.1 [place] # (Auto) 0.5 Eos # (Auto) 0.1 Baso # (Auto) 0.0 WBC Differential . Differential Comment Auto diff final PT INR APTT Fibrinogen POC Sodium Sodium 142 POC Potassium Potassium 3.8 POC Chloride Chloride 106 Carbon Dioxide 26.9 Anion Gap 9 POC BUN BUN 18 Creatinine 1.03 H POC Creatinine Estimated GFR 53 L POC Glucose 100 Random Glucose 96 Calcium 9.2 Phosphorus Magnesium Total Bilirubin AST ALT Alkaline Phosphatase Total Creatine Kinase Troponin I Total Protein Albumin TSH Free T4 Blood Type Blood Type Recheck Antibody Screen 10/08/17 10/08/17 10/08/17 15:17 15:17 15:17 WBC 7.3 RBC 4.35 Hgb 13.4 POC Hgb (Calc) Hct 40.2 POC Hct MCV 92.4 MCH 30.9 MCHC 33.5 RDW 13.9 Plt Count 211 MPV 8.3 Prelim Diff (Auto) Neut % (Auto) 55.2 Lymph % (Auto) 36.3 [place] % (Auto) 6.5 Eos % (Auto) 1.5 Baso % (Auto) 0.5 Neut # (Auto) 4.0 Lymph # (Auto) 2.6 [place] # (Auto) 0.5 Eos # (Auto) 0.1 Baso # (Auto) 0.0 WBC Differential . Differential Comment Auto diff final PT 10.8 INR 1.1 APTT 21.4 L Fibrinogen 189 L POC Sodium Sodium POC Potassium Potassium POC Chloride Chloride Carbon Dioxide Anion Gap POC BUN BUN Creatinine POC Creatinine Estimated GFR POC Glucose Random Glucose Calcium Phosphorus Magnesium Total Bilirubin AST ALT Alkaline Phosphatase Total Creatine Kinase 65 Troponin I Less than 0.02 L Total Protein Albumin TSH Free T4 Blood Type Blood Type Recheck Antibody Screen 10/08/17 10/08/17 10/08/17 15:17 15:17 17:56 WBC RBC Hgb POC Hgb (Calc) 13.3 Hct POC Hct 39.0 MCV MCH MCHC RDW Plt Count MPV Prelim Diff (Auto) Neut % (Auto) Lymph % (Auto) [place] % (Auto) Eos % (Auto) Baso % (Auto) Neut # (Auto) Lymph # (Auto) [place] # (Auto) Eos # (Auto) Baso # (Auto) WBC Differential Differential Comment PT INR APTT Fibrinogen POC Sodium 140 Sodium POC Potassium 3.8 Potassium POC Chloride 101 L Chloride Carbon Dioxide Anion Gap POC BUN 18 BUN Creatinine POC Creatinine 1.0 Estimated GFR POC Glucose 137 H 159 H Random Glucose Calcium Phosphorus Magnesium Total Bilirubin AST ALT Alkaline Phosphatase Total Creatine Kinase Troponin I Total Protein Albumin TSH Free T4 Blood Type A Positive Blood Type Recheck Required Antibody Screen Negative 10/08/17 10/08/17 10/09/17 21:09 21:14 05:39 WBC RBC Hgb POC Hgb (Calc) Hct POC Hct MCV MCH MCHC RDW Plt Count MPV Prelim Diff (Auto) Neut % (Auto) Lymph % (Auto) [place] % (Auto) Eos % (Auto) Baso % (Auto) Neut # (Auto) Lymph # (Auto) [place] # (Auto) Eos # (Auto) Baso # (Auto) WBC Differential Differential Comment PT INR APTT Fibrinogen POC Sodium Sodium POC Potassium Potassium POC Chloride Chloride Carbon Dioxide Anion Gap POC BUN BUN Creatinine POC Creatinine Estimated GFR POC Glucose 191 H 151 H 121 H Random Glucose Calcium Phosphorus Magnesium Total Bilirubin AST ALT Alkaline Phosphatase Total Creatine Kinase Troponin I Total Protein Albumin TSH Free T4 Blood Type Blood Type Recheck Antibody Screen 10/09/17 10/09/17 05:53 05:53 WBC 13.8 H D RBC 4.80 Hgb 14.4 POC Hgb (Calc) Hct 43.7 POC Hct MCV 91.0 MCH 29.9 MCHC 32.9 RDW 14.1 Plt Count 237 MPV 8.7 Prelim Diff (Auto) Manual diff required Neut % (Auto) Lymph % (Auto) [place] % (Auto) Eos % (Auto) Baso % (Auto) Neut # (Auto) Lymph # (Auto) [place] # (Auto) Eos # (Auto) Baso # (Auto) WBC Differential . Differential Comment . PT INR APTT Fibrinogen POC Sodium Sodium 140 POC Potassium Potassium 4.0 POC Chloride Chloride 103 Carbon Dioxide 26.8 Anion Gap 10 POC BUN BUN 15 Creatinine 0.87 POC Creatinine Estimated GFR 64 L POC Glucose Random Glucose 114 H Calcium 8.9 Phosphorus 3.5 Magnesium 2.6 H Total Bilirubin 0.6 AST 56 H ALT 76 H Alkaline Phosphatase 66 Total Creatine Kinase Troponin I Total Protein 7.5 Albumin 3.7 TSH 1.270 Free T4 0.95 Blood Type Blood Type Recheck Antibody Screen Review/Management - Diagnosis (1) Parotid tumor Code(s): D49.0 - Neoplasm of unspecified behavior of digestive system Status: Acute Current Visit: Yes (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 Code(s): G97.82 - Other postprocedural complications and disorders of nervous system; G51.9 - Disorder of facial nerve, unspecified Status: Acute Current Visit: Yes (3) Hypertension Code(s): I10 - Essential (primary) hypertension Status: Acute Current Visit : Yes - Review/Management Plan: Probable medication reaction causing her confusion lethargy; right facial weakness likely related to facial neuropathy associated with her recent surgery which hopefully should improve with time no other focal weakness Unlikely to be a stroke based on current clinical scenario thus not a TPA candidate in addition to minimal symptoms which have improved Recommendations Improve right facial weakness Otherwise neurologically intact Can be discharged from our standpoint and followed up as needed
[2017-10-09 08:31] LABS: Lymphocytes 13 % (9-44); Monocytes 3 % (0-8)
[2017-10-09 08:32] LABS: Platelet Estimate Normal (Normal); Platelet Morphology Normal (Normal)
[2017-10-09] MEDS: Famotidine 20 MG Tablet PO SCH ×2 (08:40→12:27)
[2017-10-09] MEDS: Pantoprazole Sodium 20 MG DR Tablet PO SCH (08:42)
--- NOTE | 2017-10-09 10:38 | P.PNIM ---
Subjective Interval history: Patient is a 72-year-old female. Who underwent right parotidectomy by Dr. ALMANZAR TODAY. After surgery was noted to have some right-sided facial droop. There was some concern about a TIA versus stroke. Was seen by neurology who ruled this out. It is suspect that may be a facial nerve was involved during the surgery. We have been asked to consult regarding medical management. Has a history of a hysterectomy, cholecystectomy, removal of her mole from her right cheek, repair fracture of her right arm, and tonsillectomy tonsillectomy. Also has a history of high cholesterol and diabetes mellitus and some anxiety 7-25 has been cleared by surgery and neurology can dc to home wants rx for protonix will generate this dw RN AND PATIENT Physical Exam Vital signs: Vital Signs 10/08/17 11:11 10/08/17 14:12 10/08/17 14:15 Temperature 98.8 F 98.1 F Pulse Rate 80 101 H 99 H Respiratory Rate 20 18 19 Blood Pressure 142/69 H 132/69 126/60 Pulse Oximetry 94 L 98 97 10/08/17 14:30 10/08/17 14:45 10/08/17 15:00 Temperature Pulse Rate 94 H 91 H 88 Respiratory Rate 18 14 15 Blood Pressure 113/65 109/56 L 121/58 L Pulse Oximetry 98 96 96 10/08/17 15:15 10/08/17 15:36 10/08/17 15:45 Temperature Pulse Rate 92 H 91 H 84 Respiratory Rate 23 18 15 Blood Pressure 128/60 105/54 L 140/59 L Pulse Oximetry 95 95 98 10/08/17 16:00 10/08/17 18:40 10/08/17 19:00 Temperature 97.8 F Pulse Rate 86 80 Respiratory Rate 16 16 16 Blood Pressure 137/63 122/58 L Pulse Oximetry 99 94 L 10/08/17 19:47 10/08/17 20:00 10/08/17 21:00 Temperature 98.3 F Pulse Rate 80 75 Respiratory Rate 18 24 Blood Pressure 117/57 L 109/94 H Pulse Oximetry 95 94 L 10/08/17 22:00 10/08/17 23:00 10/09/17 00:00 Temperature 97.8 F Pulse Rate 71 66 77 Respiratory Rate 17 16 23 Blood Pressure 133/60 126/60 109/59 L Pulse Oximetry 10/09/17 01:00 10/09/17 02:00 10/09/17 03:00 Temperature Pulse Rate 66 64 64 Respiratory Rate 15 13 Blood Pressure 105/52 L 94/51 L 112/54 L Pulse Oximetry 96 95 10/09/17 04:00 10/09/17 05:00 10/09/17 06:00 Temperature 98.4 F Pulse Rate 66 64 66 Respiratory Rate 14 16 14 Blood Pressure 116/55 L 126/68 121/59 L Pulse Oximetry 96 96 95 Intake & Output 10/08/17 10/09/17 10/09/17 18:59 06:59 18:59 Intake Total 1915 / 1915 Output Total 815 / 815 1080 / 1080 Balance 1100 / 1100 -1080 / -1080 Weight 93.6 kg 93.61 kg Intake: Oral 240 / 240 Anesthesia Amount 1600 / 1600 Other 75 / 75 Output: Urine 0 / 0 Estimated Blood Loss 50 / 50 Urine Amount (Catheter) 725 / 725 1050 / 1050 Indwelling Urethral Catheter 725 / 725 1050 / 1050 Wound Drainage 40 / 40 30 / 30 Right Cheek 40 / 40 30 / 30 Other: # Bowel Movements 0 Weight On Admission 93.6 kg Narrative: GENERAL: Well nourished patient, in no apparent distress. SKIN: Warm and dry. HEAD: Atraumatic. Normocephalic. EYES: Pupils equal and round. NECK: Trachea midline. Neck is supple. CARDIOVASCULAR: Normal rate and regular rhythm without murmurs, RESPIRATORY: Symmetric, unlabored respirations. GASTROINTESTINAL: Abdomen soft, non-tender, non-distended. NEUROLOGICAL: Awake alert oriented 3 fluent articulate no aphasia. Extraocular movements intact no, mild right lower facial weakness drain coming out the right lower mandible region where she had her surgery, speech clear oriented 3 pupils sluggishly reactive extraocular movements intact tongue midline, no pronator drift APPROPRIATE MOOD AND BEHAVIOR INSIGHT AND JUDGEMENT IS GOOD - Urinary Catheter Management Indwelling Urethral Catheter Cath placed during this visit: yes Reason for continuing: Acute urinary retention Insertion date: 10/08/17 Insertion time: 16:00 Results - Labs CBC & Chem 7: 10/09/17 05:53 10/09/17 05:53 Laboratory Results - last 24 hr 07/24/18 07/24/18 07/24/18 11:20 11:20 14:44 WBC 7.0 RBC 4.82 Hgb 14.6 POC Hgb (Calc) Hct 43.6 POC Hct MCV 90.3 MCH 30.3 MCHC 33.5 RDW 13.8 Plt Count 242 MPV 8.3 Prelim Diff (Auto) Neut % (Auto) 45.4 Lymph % (Auto) 44.3 H [place] % (Auto) 7.7 Eos % (Auto) 2.0 Baso % (Auto) 0.6 Neut # (Auto) 3.2 Lymph # (Auto) 3.1 [place] # (Auto) 0.5 Eos # (Auto) 0.1 Baso # (Auto) 0.0 WBC Differential . Seg Neuts % (Manual) Band Neuts % (Manual) Lymphocytes % (Manual) Monocytes % (Manual) Abs Neuts (Manual) Differential Comment Auto diff final Platelet Estimate Platelet Morphology PT INR APTT Fibrinogen POC Sodium Sodium 142 POC Potassium Potassium 3.8 POC Chloride Chloride 106 Carbon Dioxide 26.9 Anion Gap 9 POC BUN BUN 18 Creatinine 1.03 H POC Creatinine Estimated GFR 53 L POC Glucose 100 Random Glucose 96 Calcium 9.2 Phosphorus Magnesium Total Bilirubin AST ALT Alkaline Phosphatase Total Creatine Kinase Troponin I Total Protein Albumin TSH Free T4 Blood Type Blood Type Recheck Antibody Screen 10/08/17 10/08/17 10/08/17 15:17 15:17 15:17 WBC 7.3 RBC 4.35 Hgb 13.4 POC Hgb (Calc) Hct 40.2 POC Hct MCV 92.4 MCH 30.9 MCHC 33.5 RDW 13.9 Plt Count 211 MPV 8.3 Prelim Diff (Auto) Neut % (Auto) 55.2 Lymph % (Auto) 36.3 [place] % (Auto) 6.5 Eos % (Auto) 1.5 Baso % (Auto) 0.5 Neut # (Auto) 4.0 Lymph # (Auto) 2.6 [place] # (Auto) 0.5 Eos # (Auto) 0.1 Baso # (Auto) 0.0 WBC Differential . Seg Neuts % (Manual) Band Neuts % (Manual) Lymphocytes % (Manual) Monocytes % (Manual) Abs Neuts (Manual) Differential Comment Auto diff final Platelet Estimate Platelet Morphology PT 10.8 INR 1.1 APTT 21.4 L Fibrinogen 189 L POC Sodium Sodium POC Potassium Potassium POC Chloride Chloride Carbon Dioxide Anion Gap POC BUN BUN Creatinine POC Creatinine Estimated GFR POC Glucose Random Glucose Calcium Phosphorus Magnesium Total Bilirubin AST ALT Alkaline Phosphatase Total Creatine Kinase 65 Troponin I Less than 0.02 L Total Protein Albumin TSH Free T4 Blood Type Blood Type Recheck Antibody Screen 10/08/17 10/08/17 10/08/17 15:17 15:17 17:56 WBC RBC Hgb POC Hgb (Calc) 13.3 Hct POC Hct 39.0 MCV MCH MCHC RDW Plt Count MPV Prelim Diff (Auto) Neut % (Auto) Lymph % (Auto) [place] % (Auto) Eos % (Auto) Baso % (Auto) Neut # (Auto) Lymph # (Auto) [place] # (Auto) Eos # (Auto) Baso # (Auto) WBC Differential Seg Neuts % (Manual) Band Neuts % (Manual) Lymphocytes % (Manual) Monocytes % (Manual) Abs Neuts (Manual) Differential Comment Platelet Estimate Platelet Morphology PT INR APTT Fibrinogen POC Sodium 140 Sodium POC Potassium 3.8 Potassium POC Chloride 101 L Chloride Carbon Dioxide Anion Gap POC BUN 18 BUN Creatinine POC Creatinine 1.0 Estimated GFR POC Glucose 137 H 159 H Random Glucose Calcium Phosphorus Magnesium Total Bilirubin AST ALT Alkaline Phosphatase Total Creatine Kinase Troponin I Total Protein Albumin TSH Free T4 Blood Type A Positive Blood Type Recheck Required Antibody Screen Negative 10/08/17 10/08/17 10/09/17 21:09 21:14 05:39 WBC RBC Hgb POC Hgb (Calc) Hct POC Hct MCV MCH MCHC RDW Plt Count MPV Prelim Diff (Auto) Neut % (Auto) Lymph % (Auto) [place] % (Auto) Eos % (Auto) Baso % (Auto) Neut # (Auto) Lymph # (Auto) [place] # (Auto) Eos # (Auto) Baso # (Auto) WBC Differential Seg Neuts % (Manual) Band Neuts % (Manual) Lymphocytes % (Manual) Monocytes % (Manual) Abs Neuts (Manual) Differential Comment Platelet Estimate Platelet Morphology PT INR APTT Fibrinogen POC Sodium Sodium POC Potassium Potassium POC Chloride Chloride Carbon Dioxide Anion Gap POC BUN BUN Creatinine POC Creatinine Estimated GFR POC Glucose 191 H 151 H 121 H Random Glucose Calcium Phosphorus Magnesium Total Bilirubin AST ALT Alkaline Phosphatase Total Creatine Kinase Troponin I Total Protein Albumin TSH Free T4 Blood Type Blood Type Recheck Antibody Screen 10/09/17 10/09/17 05:53 05:53 WBC 13.8 H D RBC 4.80 Hgb 14.4 POC Hgb (Calc) Hct 43.7 POC Hct MCV 91.0 MCH 29.9 MCHC 32.9 RDW 14.1 Plt Count 237 MPV 8.7 Prelim Diff (Auto) Manual diff required Neut % (Auto) Lymph % (Auto) [place] % (Auto) Eos % (Auto) Baso % (Auto) Neut # (Auto) Lymph # (Auto) [place] # (Auto) Eos # (Auto) Baso # (Auto) WBC Differential Manual diff final Seg Neuts % (Manual) 78 H Band Neuts % (Manual) 6 Lymphocytes % (Manual) 13 Monocytes % (Manual) 3 Abs Neuts (Manual) 11.6 H Differential Comment . Platelet Estimate Normal Platelet Morphology Normal PT INR APTT Fibrinogen POC Sodium Sodium 140 POC Potassium Potassium 4.0 POC Chloride Chloride 103 Carbon Dioxide 26.8 Anion Gap 10 POC BUN BUN 15 Creatinine 0.87 POC Creatinine Estimated GFR 64 L POC Glucose Random Glucose 114 H Calcium 8.9 Phosphorus 3.5 Magnesium 2.6 H Total Bilirubin 0.6 AST 56 H ALT 76 H Alkaline Phosphatase 66 Total Creatine Kinase Troponin I Total Protein 7.5 Albumin 3.7 TSH 1.270 Free T4 0.95 Blood Type Blood Type Recheck Antibody Screen - Imaging Impressions Head CT 10/08/17 15:16 CONCLUSION: 1. Stable appearance with no acute hemorrhage or mass effect. The lateral ventricles remain prominent. Report was called by [Dr. Rapp to Dr. Euceda at 1536 hours. ] - Procedures 10/08/2017 DATE OF : 1945 DATE OF SURGERY: 10/08/2017 PREOPERATIVE DIAGNOSIS: Mass, right parotid gland. POSTOPERATIVE DIAGNOSIS: Mass, right parotid gland. PROCEDURE PERFORMED: Right superficial parotidectomy. SURGEON: Jacky Almanzar MD, Maxillofacial material handler: Jacob Caro. FLUIDS: Crystalloids 1600 mL. ESTIMATED BLOOD LOSS: 50 mL. SPECIMENS: One permanent sent. DRAINS: She got a #7 FELISHA coming out of the right neck. JUSTIFICATION: Ms. Connolly is a pleasant 72-year-old female I have been following for a while. She has a mass in the right parotid which she has had for a few years. It is now starting to grow. CT scan showed how much larger it had gotten in size, now over 5 x 6 cm in size in the right parotid tail. It had started to cause her pain upon opening, so decision was made to go ahead and remove. 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 PROCEDURE: On 10/08/2017 she presented to the [facility] area where she was identified by name and chart number. She was then brought to [facility], where she was intubated orally by Anesthesia. She was prepped and draped in sterile fashion. Local anesthesia given with 1% Xylocaine with 1:1000 epinephrine, total of 10 mL in the right neck and preauricular region. A preauricular incision was made, facelift incision type, coming underneath the ear, back posteriorly and in question marlon incision down the neck. Subcutaneous dissection done to expose the flap out and expose the parotid gland and the mass. Dissection done deep along the preauricular and posterior auricular region, taking down underneath the parotid mass and the superficial tail of the parotid, removing the mass. Multiple vessels were entered, going to the lesion and had to be cut and tied off with a 2-0 silk suture. Some of the SCM muscle was bound down and scarred down to it, dissecting and releasing it from the parotid mass. Some cystic spaces were noted and some of the contents of the tumor dumped out suggestive of a Warthin's tumor. Continued to dissect down, tying off the bleeders, dissecting around the tumor mass, which had been there, scarred down, fairly difficult in a couple areas to remove. The mass was removed in 2 separate sections and sent off for permanent. The space was irrigated with copious saline. The closure was done. Avitene was placed in some of the space areas. Upon closure, the patient bucked and re-bleeding in the area. Had to open back to locate a small bleeder and then irrigated out again and the closure continued with a 4-0 Vicryl deep and 6-0 Prolene in the skin, some zacarias in the hairline. A dressing was wrapped around the neck to try to keep some pressure on this especially during extubation. According to Anesthesia, she was all over the place with her blood pressure, trying to keep it at a low number so she does have any bleeding issues into the neck. The patient was extubated and taken to Recovery with vital signs stable. Her plan is to go home tonight. If she has any issues in the PACU, then we will keep her for 23 hours if necessary. 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 labs Will be followed throughout the admission and hopefully discharged within the next 24-48 hours depending on clearance by surgery MEDICALLY CLEARED FOR DC ON 10-09 Code Status: FULL CODE Discussed Condition With: KURT RN AND PT Discharge Planning: CLEARED BY HOSPITALIST FOR DC
[2017-10-09 11:19] VITALS: O2SAT 96
[2017-10-09 17:57] LABS: Hemoglobin A1c 5.8 % (4.3-6.0)
== END 2017-10-09 13:40 | disposition home or self-care (01) ==
LOC: HSDC 10:01 → N03 16:00
PROVIDERS: ADMIT Dentist Oral and Maxillofacial Surgery; ATTEND Dentist Oral and Maxillofacial Surgery
PROC: [UNRECOGNIZED PROCEDURE] (2017-10-08 12:18)